=== PATIENT | male | born 1945 | race Caucasian/White ===

== ENCOUNTER 2016-03-25 08:46 | Inpatient (IN) | payer OTHER ==
[~2016-03-25] VITALS: Ht 170.2 cm; Wt 80.5 kg
[2016-03-25] MEDS ORDERED: AZITHROMYCIN 500 MG VIAL IV ONE (11:19)
[2016-03-25] MEDS ORDERED: SODIUM CHLORIDE 0.9% 100 ML IV ONE (11:19)
[2016-03-25] MEDS ORDERED: CEFTRIAXONE 1 GM VIAL ONE (11:19)
[2016-03-25] MEDS ORDERED: SODIUM CHLORIDE 0.9% 250 ML IV ONE ×2 (11:19→11:23)
[2016-03-25] MEDS: VANCOMYCIN 1,250 MG in SODIUM CHLORIDE 0.9% 250 ML IV ONE ×2 (12:05→18:40)
[2016-03-25] MEDS ORDERED: CEFEPIME 2,000 MG in SODIUM CHLORIDE 0.9% 100 ML IV ONE (12:05)
[2016-03-25] MEDS: GUAIFENESIN ER 600 MG TABCR PO SCH ×2 (13:15→21:40)
[2016-03-25] MEDS ORDERED: PHARMACY TO DOSE VANCOMYCIN IV SCH (13:15)
[2016-03-25] MEDS ORDERED: NEB-ALBUTEROL 2.5 MG/3 ML INH PRN (13:15)
[2016-03-25] MEDS ORDERED: PHARMACY TO DOSE CEFEPIME IV SCH (13:15)
[2016-03-25] MEDS ORDERED: NITROGLYCERIN SL 0.4 MG TAB SL PRN (13:20)
[2016-03-25] MEDS ORDERED: SALINE FLUSH 10 ML FLUSH PRN (13:25)
[2016-03-25] MEDS: ASPIRIN 81 MG CHEW TAB PO SCH ×2 (14:54→21:40)
[2016-03-25] MEDS: Carvedilol 6.25 MG TAB PO SCH ×2 (14:55→21:38)
[2016-03-25 15:11] VITALS: BP_SYST 132; RESP 18; TEMP 99.5
[2016-03-25 15:13] VITALS: Ht 170.2 cm; Wt 80.5 kg
[2016-03-25] MEDS: ACETAMINOPHEN 325 MG TAB PO PRN ×2 (15:36→21:39)
[2016-03-25] MEDS: AZITHROMYCIN 500 MG in SODIUM CHLORIDE 0.9% 250 ML IV SCH (17:06)
[2016-03-25] MEDS: NEB-BROVANA 15 MCG/2 ML INH SCH (17:37)
[2016-03-25] MEDS: NEB-BUDESONIDE 0.5 MG INH SCH (17:37)
[2016-03-25] MEDS: DUONEB INH SCH (17:37)
[2016-03-25 17:38] VITALS: RESP 18
[2016-03-25] MEDS: **NOTE TO NURSE XX SCH (17:55)
[2016-03-25] MEDS: PANTOPRAZOLE 40 MG TAB PO SCH (18:00)
[2016-03-25] MEDS: DILTIAZEM CD 120 MG CAP PO SCH (18:00)
[2016-03-25] MEDS: VANCOMYCIN 1,500 MG in SODIUM CHLORIDE 0.9% 250 ML IV SCH (18:49)
[2016-03-25 20:43] VITALS: BP_SYST 118; RESP 18; TEMP 99
[2016-03-25] MEDS: ALPRAZOLAM 0.25 MG TAB PO SCH (21:38)
[2016-03-25] MEDS: FAMOTIDINE 20 MG TAB PO SCH (21:40)
[2016-03-25] MEDS: CEFEPIME 2000 MG/100 ML D5W 100 ML IV SCH (21:41)
[2016-03-25] MEDS: SALINE FLUSH 10 ML FLUSH SCH (21:41)
[2016-03-25 23:48] VITALS: BP_SYST 118; RESP 18; TEMP 97.4
[2016-03-26] VITALS (7 sets, daily range): BP systolic 128–132; RESP 18–25; TEMP 97.7–98.7
[2016-03-26] MEDS: **NOTE TO NURSE XX SCH (01:25)
[2016-03-26] MEDS: PANTOPRAZOLE 40 MG TAB PO SCH ×2 (05:59→15:30)
[2016-03-26] MEDS: CEFEPIME 2000 MG/100 ML D5W 100 ML IV SCH ×3 (05:59→22:18)
[2016-03-26] MEDS: SODIUM CHLORIDE 0.9% FLUSH BAG 500 ML IV SCH (06:00)
[2016-03-26] MEDS: DUONEB INH SCH ×3 (06:56→19:13)
[2016-03-26] MEDS: NEB-BROVANA 15 MCG/2 ML INH SCH ×2 (06:56→19:13)
[2016-03-26] MEDS: NEB-BUDESONIDE 0.5 MG INH SCH ×2 (06:56→19:13)
[2016-03-26] MEDS: FAMOTIDINE 20 MG TAB PO SCH ×2 (08:36→22:17)
[2016-03-26] MEDS: GUAIFENESIN ER 600 MG TABCR PO SCH ×2 (08:37→22:16)
[2016-03-26] MEDS: ACETAMINOPHEN 325 MG TAB PO PRN (08:39)
[2016-03-26] MEDS: DILTIAZEM CD 120 MG CAP PO SCH (08:39)
[2016-03-26] MEDS: Carvedilol 6.25 MG TAB PO SCH ×2 (08:39→22:16)
[2016-03-26] MEDS: ASPIRIN 81 MG CHEW TAB PO SCH ×2 (08:39→22:16)
[2016-03-26] MEDS: AZITHROMYCIN 500 MG in SODIUM CHLORIDE 0.9% 250 ML IV SCH (08:41)
[2016-03-26] MEDS: SALINE FLUSH 10 ML FLUSH SCH ×2 (08:42→19:13)
[2016-03-26] MEDS: VANCOMYCIN 1,500 MG in SODIUM CHLORIDE 0.9% 250 ML IV SCH (10:06)
[2016-03-26] MEDS: Atorvastatin 10 MG TAB PO SCH (22:17)
[2016-03-26] MEDS: ALPRAZOLAM 0.25 MG TAB PO SCH (22:17)
[2016-03-27 02:37] VITALS: BP_SYST 134; RESP 18; TEMP 98.7
[2016-03-27] MEDS: PANTOPRAZOLE 40 MG TAB PO SCH ×2 (06:19→15:35)
[2016-03-27] MEDS: CEFEPIME 2000 MG/100 ML D5W 100 ML IV SCH ×3 (06:19→20:54)
[2016-03-27] MEDS: SODIUM CHLORIDE 0.9% FLUSH BAG 500 ML IV SCH (06:19)
[2016-03-27] MEDS: DUONEB INH SCH ×3 (07:15→19:25)
[2016-03-27] MEDS: NEB-BUDESONIDE 0.5 MG INH SCH ×2 (07:15→19:25)
[2016-03-27] MEDS: NEB-BROVANA 15 MCG/2 ML INH SCH ×2 (07:15→19:25)
[2016-03-27 08:13] VITALS: BP_SYST 142; RESP 20; TEMP 97
[2016-03-27] MEDS: SALINE FLUSH 10 ML FLUSH SCH ×2 (08:54→20:54)
[2016-03-27] MEDS: GUAIFENESIN ER 600 MG TABCR PO SCH ×2 (08:56→20:57)
[2016-03-27] MEDS: DILTIAZEM CD 120 MG CAP PO SCH (08:56)
[2016-03-27] MEDS: Carvedilol 6.25 MG TAB PO SCH ×2 (08:56→20:56)
[2016-03-27] MEDS: FAMOTIDINE 20 MG TAB PO SCH ×2 (08:56→20:56)
[2016-03-27] MEDS: ASPIRIN 81 MG CHEW TAB PO SCH ×2 (08:56→20:56)
[2016-03-27 11:05] VITALS: BP_SYST 120; RESP 16; TEMP 98.3
[2016-03-27 15:17] VITALS: BP_SYST 124; RESP 18; TEMP 98.3
[2016-03-27 19:30] VITALS: BP_SYST 130; RESP 18; TEMP 96.1
[2016-03-27] MEDS: ALPRAZOLAM 0.25 MG TAB PO SCH (20:56)
[2016-03-27] MEDS: Atorvastatin 10 MG TAB PO SCH (20:56)
[2016-03-27] MEDS: ZOLPIDEM 5 MG TAB PO PRN (20:57)
[2016-03-27 23:27] VITALS: BP_SYST 122; RESP 18; TEMP 98.1
[2016-03-28 03:39] VITALS: BP_SYST 130; RESP 18; TEMP 98.6
[2016-03-28] MEDS: SODIUM CHLORIDE 0.9% FLUSH BAG 500 ML IV SCH (05:49)
[2016-03-28] MEDS: PANTOPRAZOLE 40 MG TAB PO SCH ×2 (05:49→16:54)
[2016-03-28] MEDS: CEFEPIME 2000 MG/100 ML D5W 100 ML IV SCH ×3 (05:50→20:27)
[2016-03-28 07:49] VITALS: BP_SYST 126; RESP 18; TEMP 97.3
[2016-03-28] MEDS: DUONEB INH SCH ×3 (07:54→19:42)
[2016-03-28] MEDS: NEB-BUDESONIDE 0.5 MG INH SCH ×2 (07:54→19:42)
[2016-03-28] MEDS: NEB-BROVANA 15 MCG/2 ML INH SCH ×2 (07:54→19:42)
[2016-03-28] MEDS: GUAIFENESIN ER 600 MG TABCR PO SCH ×2 (09:07→20:27)
[2016-03-28] MEDS: FAMOTIDINE 20 MG TAB PO SCH ×2 (09:07→20:26)
[2016-03-28] MEDS: DILTIAZEM CD 120 MG CAP PO SCH (09:07)
[2016-03-28] MEDS: Carvedilol 6.25 MG TAB PO SCH ×2 (09:08→20:26)
[2016-03-28] MEDS: ASPIRIN 81 MG CHEW TAB PO SCH ×2 (09:08→20:27)
[2016-03-28] MEDS: SALINE FLUSH 10 ML FLUSH SCH ×2 (09:09→20:30)
[2016-03-28 11:33] VITALS: BP_SYST 118; RESP 18; TEMP 98.4
[2016-03-28 16:56] VITALS: BP_SYST 138; RESP 18; TEMP 97.5
[2016-03-28 19:55] VITALS: BP_SYST 128; RESP 18; TEMP 98.8
[2016-03-28] MEDS: Atorvastatin 10 MG TAB PO SCH (20:26)
[2016-03-28] MEDS: ZOLPIDEM 5 MG TAB PO PRN (20:27)
[2016-03-28] MEDS: ALPRAZOLAM 0.25 MG TAB PO SCH (20:27)
[2016-03-29] VITALS (7 sets, daily range): BP systolic 107–124; RESP 16–18; TEMP 96.4–98.8
[2016-03-29] MEDS: SODIUM CHLORIDE 0.9% FLUSH BAG 500 ML IV SCH (06:01)
[2016-03-29] MEDS: CEFEPIME 2000 MG/100 ML D5W 100 ML IV SCH ×3 (06:02→21:06)
[2016-03-29] MEDS: NEB-BROVANA 15 MCG/2 ML INH SCH ×2 (06:04→20:32)
[2016-03-29] MEDS: DUONEB INH SCH ×3 (06:04→20:32)
[2016-03-29] MEDS: NEB-BUDESONIDE 0.5 MG INH SCH ×2 (06:04→20:32)
[2016-03-29] MEDS: PANTOPRAZOLE 40 MG TAB PO SCH ×2 (06:16→17:37)
[2016-03-29] MEDS: SALINE FLUSH 10 ML FLUSH SCH ×2 (07:41→21:06)
[2016-03-29] MEDS: GUAIFENESIN ER 600 MG TABCR PO SCH ×2 (09:05→21:04)
[2016-03-29] MEDS: FAMOTIDINE 20 MG TAB PO SCH ×2 (09:06→21:04)
[2016-03-29] MEDS: ASPIRIN 81 MG CHEW TAB PO SCH ×2 (09:06→21:05)
[2016-03-29] MEDS ORDERED: LEXISCAN 0.4 MG/5 ML SYRINGE IV ONE (10:42)
[2016-03-29] MEDS: DILTIAZEM CD 120 MG CAP PO SCH (13:37)
[2016-03-29] MEDS ORDERED: Carvedilol 6.25 MG TAB PO SCH (21:00)
[2016-03-29] MEDS: ALPRAZOLAM 0.25 MG TAB PO SCH (21:03)
[2016-03-29] MEDS: Atorvastatin 10 MG TAB PO SCH (21:04)
[2016-03-29] MEDS: ACETAMINOPHEN 325 MG TAB PO PRN (21:04)
[2016-03-29] MEDS: ZOLPIDEM 5 MG TAB PO PRN (21:05)
[2016-03-30 03:41] VITALS: BP_SYST 107; RESP 16; TEMP 97.2
[2016-03-30] MEDS: PANTOPRAZOLE 40 MG TAB PO SCH (06:30)
[2016-03-30] MEDS: CEFEPIME 2000 MG/100 ML D5W 100 ML IV SCH (06:30)
[2016-03-30] MEDS: SODIUM CHLORIDE 0.9% FLUSH BAG 500 ML IV SCH (06:30)
[2016-03-30] MEDS: DUONEB INH SCH (07:37)
[2016-03-30] MEDS: NEB-BROVANA 15 MCG/2 ML INH SCH (07:37)
[2016-03-30] MEDS: NEB-BUDESONIDE 0.5 MG INH SCH (07:37)
[2016-03-30] MEDS: SALINE FLUSH 10 ML FLUSH SCH (08:00)
[2016-03-30 08:24] VITALS: BP_SYST 130; RESP 16; TEMP 97
[2016-03-30] MEDS: FAMOTIDINE 20 MG TAB PO SCH (08:52)
[2016-03-30] MEDS: DILTIAZEM CD 120 MG CAP PO SCH (08:52)
[2016-03-30] MEDS: ASPIRIN 81 MG CHEW TAB PO SCH (08:52)
[2016-03-30] MEDS: GUAIFENESIN ER 600 MG TABCR PO SCH (08:52)
[2016-03-30] MEDS ORDERED: Carvedilol 6.25 MG TAB PO SCH (09:00)
[2016-03-30] MEDS ORDERED: ISOSORBIDE MONO 30 MG TAB PO SCH (09:00)
[2016-03-30 11:58] VITALS: BP_SYST 130; RESP 16; TEMP 97
== END 2016-03-30 12:59 | disposition home or self-care (01) | DRG 190 ==
LOC: ENRESERVTM → ENRESERVDT → ER 08:46 → EMR 13:14 → ENPENDDIS 13:14 → 4THW 14:44
PROVIDERS: ADMIT Hospitalist; ATTEND Hospitalist
DX: J44.0 Chronic obstructive pulmonary disease with (acute) lower respiratory infection (principal); J15.5 Pneumonia due to Escherichia coli; I11.9 Hypertensive heart disease without heart failure; Z87.01 Personal history of pneumonia (recurrent); I25.119 Atherosclerotic heart disease of native coronary artery with unspecified angina pectoris; N40.0 Benign prostatic hyperplasia without lower urinary tract symptoms; K21.9 Gastro-esophageal reflux disease without esophagitis; Z95.5 Presence of coronary angioplasty implant and graft; Z95.0 Presence of cardiac pacemaker; I25.2 Old myocardial infarction; Z87.891 Personal history of nicotine dependence; H91.90 Unspecified hearing loss, unspecified ear; Z79.82 Long term (current) use of aspirin
CPT/HCPCS: 36415; 71010; 71020; 78452; 80048; 80053; 80202; 82553; 82947; 83605; 83880; 84439; 84443; 84484; 85025; 87040; 87071; 87077; 87186; 87278; 87299; 87804; 93005; 93017; 93306; 94640; 94660; 94799; 96365; 96366; 96367; 99223; 99233; 99239